=== PATIENT | female | born 1965 | race Caucasian/White ===

== ENCOUNTER 2017-09-01 21:31 | Emergency (ER) | payer OTHER ==
[~2017-09-01] VITALS: Ht 171.5 cm; Wt 102.0 kg
[2017-09-01 21:35] VITALS: TEMP 36.7; Ht 171.5 cm; Wt 102.0 kg
[2017-09-01] MEDS ORDERED: DEXAMETHASONE SOD INJ 4 MG/ML 5 ML VIAL IM STA (22:15)
[2017-09-01] MEDS ORDERED: HYDROmorphone INJ 1 MG/ML SYR IM STA ×2 (22:15→23:33)
[2017-09-01] MEDS ORDERED: ONDANSETRON 4MG OD TAB PO STA (22:15)
[2017-09-01] MEDS ORDERED: FLX10 PO (22:25)
[2017-09-01] MEDS ORDERED: CETI10TA84 PO (22:25)
[2017-09-01] MEDS ORDERED: NXM/40 PO (22:25)
[2017-09-01] MEDS ORDERED: VERA240C2 PO (22:25)
[2017-09-01] MEDS ORDERED: CYM/30 PO (22:25)
[2017-09-01] MEDS ORDERED: OXYC-57 PO (22:25)
[2017-09-01] MEDS ORDERED: BECL80AE6 INH (22:25)
[2017-09-01] MEDS ORDERED: DEXAMETHASONE SOD INJ 4 MG/ML VIAL ONE (22:30)
[2017-09-02 00:10] VITALS: BP 116/73; PULSE 100; O2SAT 97
--- NOTE | 2017-09-02 00:15 | EMERGENCY ROOM VISIT NOTE ---
History Report prepared by Cleve: Ara Michaels Under the Supervision of: Dr. Harvinder Espinosa D.O. First contact with patient: 21:40 Chief Complaint: BACK PAIN Stated Complaint: LOWER BACK PAIN History of Present Illness The patient is a 52 year old female who presents to the Emergency Room with complaints of worsening lower back pain starting 1 week ago. The patient has a history of 2 herniated discs in her lower back. She reports that she had a nerve test last week. She has had worsening back pain since then. The pain wraps around to her abdomen. The pain worsens with movement. She states that she can hardly walk because of the pain. She has been taking her oxycodone and muscle relaxer to no significant relief. She has a history of hypertension. She denies any tobacco or alcohol use. She was told to go do the ED by her doctor over the phone. Source of History: patient Onset: 1 week ago Position: back (lower) Quality: other (nerve pain) Timing: worsening Modifying Factors (Worsening): movement Associated Symptoms: + abdominal pain Review of Systems See HPI for pertinent positives & negatives. A total of 10 systems reviewed and were otherwise negative. Past Medical & Surgical Medical Problems: (1) Herniated disc (2) Hypertension Family History No pertinent family history stated. Social History Smoking Status: Never Smoker Marital Status: Housing Status: lives with family Current/Historical Medications Scheduled Cetirizine (Zyrtec), 10 MG PO DAILY Cyclobenzaprine HCl (Cyclobenzaprine HCl), 1 TAB PO BID Duloxetine HCl (Cymbalta), 1 CAP PO DAILY Esomeprazole Magnesium (Nexium), 40 MG PO DAILY Prednisone (Prednisone Tab), 2 TAB PO DAILY Verapamil Hcl (Verapamil Hcl Er), 1 CAP PO DAILY Scheduled PRN Beclomethasone Dipropionate Hf (Qvar Redihaler), 2 PUFFS INH BID PRN for SOB/ Wheezing Oxycodone/Acetaminophen 5MG/325MG (Percocet 5MG/325MG), 1 TABLET PO Q12H PRN for Pain Allergies Coded Allergies: Acetaminophen (Unverified Allergy, Severe, HIVES, 09/01/17) Azithromycin (Unverified Allergy, Severe, HIVES, 09/01/17) Cephalexin (Unverified Allergy, Severe, HIVES, 09/01/17) Gabapentin (Unverified Allergy, Severe, DIZZY,DISORIENTED, 09/01/17) Hydrocodone (Unverified Allergy, Severe, HIVES, 09/01/17) Aspirin (Unverified Allergy, Unknown, BLEEDING, 09/01/17) Ibuprofen (Unverified Allergy, Unknown, BLEEDING, 09/01/17) Physical Exam Vital Signs Date Time Temp Pulse Resp B/P (MAP) Pulse Ox O2 Delivery O2 Flow Rate FiO2 09/02/17 00:10 100 20 116/73 97 Room Air 09/01/17 21:35 36.7 113 20 160/96 95 Room Air Physical Exam GENERAL: Patient is awake, alert, and in no acute distress. Patient is resting comfortably and showing no signs of anxiety EYES: The conjunctivae are clear. The pupils are round and reactive. EARS, NOSE, MOUTH AND THROAT: The nose is without any evidence of any deformity. Mucous membranes are moist tongue is midline NECK: The neck is nontender and supple. RESPIRATORY: Normal respiratory effort is noted there is no evidence of wheezing rhonchi or rales CARDIOVASCULAR: Regular rate and rhythm noted there no murmurs rubs or gallops normal S1 normal S2 GASTROINTESTINAL: The abdomen is soft. Bowel sounds are present in all quadrants. Abdomen is nontender BACK: Low lumbar tenderness to palpation, but no step off noted. ROM appears intact. MUSCULOSKELETAL/EXTREMITIES: There is no evidence of gross deformity full range of motion is noted in the hips and shoulders SKIN: There is no obvious evidence of any rash. There are no petechiae, pallor or cyanosis noted. NEUROLOGIC: Patient is awake alert and oriented x3 great toe raise was symmetric patellar reflexes are 1+ bilaterally Achilles tendon reflexes were 1+ bilaterally Medical Decision & Procedures Medications Administered Medications (Trade) Dose Ordered Sig/Kaushik Route Start Time Stop Time Status Last Admin Dose Admin Hydromorphone HCl (Dilaudid Inj) 1 mg NOW STAT IM 09/01/17 22:15 09/01/17 22:17 DC 09/01/17 22:34 1 MG Ondansetron HCl (Zofran Odt) 4 mg NOW STAT PO 09/01/17 22:15 09/01/17 22:17 DC 09/01/17 22:34 4 MG Dexamethasone Sodium Phosphate (Decadron Inj) 12 mg STK-MED ONCE .ROUTE 09/01/17 22:30 09/01/17 22:31 DC 09/01/17 22:34 10 MG Hydromorphone HCl (Dilaudid Inj) 1 mg NOW STAT IM 09/01/17 23:33 09/01/17 23:34 DC 09/02/17 00:03 1 MG ED Course 2145: The patient was evaluated in room A10. A complete history and physical examination were performed. 2205: I spoke with Dr. Rosenbaum who sent the patient in. She states that this was more therapeutic for pain management rather than diagnostic tests. 2215: Zofran Odt 4 mg PO, Dilaudid Inj 1 mg IM, Decadron Inj 10 mg IM. 2329: I reevaluated the patient. She is still having pain. 2333: Dilaudid Inj 1 mg IM. 0027: Upon reevaluation, the patient is resting comfortably. I discussed the results and treatment plan with her. She verbalized agreement of the treatment plan. She was discharged home. Medical Decision Prior records/ancillary studies reviewed. Triage Nursing notes reviewed. Additional history obtained from spouse. The patient's history was concerning for back pain. Differential diagnosis: Etiologies such as musculoskeletal, disc herniation, fracture, aortic disease, metastatic disease, cord compression, discitis, infection, renal colic, gastrointestinal, acute exacerbation of chronic back pain, sciatica, cauda equina, as well as others were entertained. The patient is a 52-year-old female who has a long history of lumbar disc disease who presented to the emergency department for an evaluation of low back pain. The patient recently had an EMG and ever since that time she has had some worsening of her pain. She has tried her home medication without results. She called her pain specialist this evening and was instructed to go to the emergency department for acute pain management. The patient was treated with pain medication and steroids. She was reevaluated multiple times. At this time she does not appear to have a physical exam consistent with a cauda equina syndrome. She was able to ambulate. I recommend that she continue all medications as prescribed and follow-up with her primary care physician as well as her primary pain specialist. I also recommended that she discuss the possibility that she may require further studies such as an MRI of the lumbar spine if symptoms do not improve. Otherwise she was encouraged to return to the emergency department immediately if symptoms change worsen or the need arises. Medication Reconcilliation Current Medication List: was personally reviewed by me Blood Pressure Screening Patient's blood pressure: Normal blood pressure Blood pressure disposition: Did not require urgent referral Consults Time Called: 2152 Consulting Physician: Dr. Rosenbaum Returned Call: [address] Rosenbaum who sent the patient in. She states that this was more therapeutic for pain management rather than diagnostic tests. Impression Primary Impression: Low back pain Scribe Attestation The scribe's documentation has been prepared under my direction and personally reviewed by me in its entirety. I confirm that the note above accurately reflects all work, treatment, procedures, and medical decision making performed by me. Departure Information Dispostion Home / Self-Care Prescriptions Prednisone (Prednisone Tab) 20 Mg Tab 2 TAB PO DAILY for 5 Days, #10 TAB Prov: Harvinder Espinosa, DO 09/02/17 Referrals Juan Manuel Boucher M.D. (PCP) Forms HOME CARE DOCUMENTATION FORM, IMPORTANT VISIT INFORMATION Patient Instructions Low Back Pain Self Care, My [facility] Additional Instructions Call your primary care physician to schedule a follow-up appointment. Rest and avoid any strenuous activity. Continue all medications as prescribed. Discussed the possibility with your primary care physician that you may require further studies such as an MRI of the back if symptoms do not improve in the usual fashion. Problem Qualifiers Primary Impression: Low back pain Chronicity: chronic Back pain laterality: bilateral Sciatica laterality: sciatica laterality unspecified
[2017-09-02] MEDS ORDERED: PRED20TA2 PO (00:20)
== END 2017-09-02 00:44 | disposition home or self-care (01) ==
LOC: C.EDB 21:32 → C.EDA 09-02 00:44
DX: M54.5 Low back pain (principal); I10 Essential (primary) hypertension; Z79.899 Other long term (current) drug therapy; Z88.1 Allergy status to other antibiotic agents; Z88.5 Allergy status to narcotic agent; Z88.8 Allergy status to other drugs, medicaments and biological substances